=== PATIENT | male | born 1985 | race Caucasian/White ===

== ENCOUNTER 2017-02-23 22:12 | Emergency (ER) | payer BC ==
--- NOTE | 2017-02-23 23:01 | EDM.PDOC ---
ED HPI GENERAL MEDICAL PROBLEM - General Chief Complaint: Upper Extremity Injury/Pain Stated Complaint: CUT ON FINGER Time Seen by Provider: 02/23/17 23:01 - History of Present Illness INITIAL COMMENTS - FREE TEXT/NARRATIVE: 31-year-old male presents emergency room with accidental cut to his left index finger. Patient was reaching into a pocket get and he had a knife that was partially opened and caught it with the end of his finger. This involves left index finger. Patient's last tetanus shot was approximately 3 years ago. Left Hand Pain Score (Numeric/FACES): 4 - Related Data Allergies Allergy/AdvReac Type Severity Reaction Status Date / Time No Known Allergies Allergy Verified 02/23/17 22:26 Home Meds: Home Meds . [No Known Home Meds] 02/23/17 [History] Past Medical History - Past Health History Medical/Surgical History: Denies Medical/Surgical History Social & Family History - Tobacco Use Smoking Status *Q: Never Smoker - Recreational Drug Use Recreational Drug Use: No Review of Systems - Review of Systems Review Of Systems: See Below Respiratory: Reports: No Symptoms Cardiovascular: Reports: No Symptoms GI/Abdominal: Reports: No Symptoms ED EXAM, GENERAL - Physical Exam Exam: See Below Exam Limited By: No Limitations General Appearance: Alert, No Apparent Distress Respiratory/Chest: No Respiratory Distress, Lungs Clear, Normal Breath Sounds Cardiovascular: Regular Rate, Rhythm, No Edema, No Murmur Extremities: Other (Family history of his left index finger reveals a 1 cm laceration on the palmar distal portion of the finger radial aspect transverse just under 1 cm. This appears fairly clean full flexion and extension of the DIPJ and PIPJ and the metacarpal phalangeal joint is noted neurovascular status is normal distal to the laceration) ED TRAUMA EXTREMITY PROCEDURES - Laceration/Wound Repair Left Finger Lac/Wound Length In cm: 1 Appearance: Subcutaneous, Clean Distal NVT: Neuro & Vascular Intact Anesthetic Type: Digital Local Anesthesia - Lidocaine (Xylocaine): 1% Plain Local Anesthetic Volume: 2cc Tetanus Status Addressed: Yes (He is up-to-date) Complications: No Course - Vital Signs Last Recorded V/S: Last Vital Signs Temp 36.6 C 02/23/17 22:27 Pulse 60 02/23/17 22:27 Resp 16 02/23/17 22:27 BP 125/75 11/29/17 22:27 Pulse Ox 99 02/23/17 22:27 - Orders/Labs/Meds Meds: Medications Discontinued Medications Generic Name Dose Route Start Last Admin Trade Name Chrissy PRN Reason Stop Dose Admin Lidocaine HCl 10 ml 02/23/17 23:08 02/23/17 23:14 Xylocaine 1% INJECT 02/23/17 23:09 10 ml ONETIME ONE Administration Departure - Departure Time of Disposition: 23:54 Disposition: Home, Self-Care 01 Clinical Impression: Finger laceration - Discharge Information Instructions: Laceration Care, Adult, [id number] Referrals: PCP,None [Primary Care Provider] - Forms: ED Department Discharge Additional Instructions: Return to emergency room if any questions problems or concerns of infection. Follow-up in the Hospital clinic in 10-12 days for suture removal [phone]. Keep area clean and dry for the next 24 hours. After 24 hours he can let water gently run over the stitches for a few seconds then gently dab dry.
[2017-02-23] MEDS ORDERED: Lidocaine 1% 10 ML MDV INJECT ONE (23:08)
== END 2017-02-23 23:58 | disposition home or self-care (01) ==
LOC: JD.ED 22:12
DX: S61.211A Laceration without foreign body of left index finger without damage to nail, initial encounter (principal); W26.0XXA Contact with knife, initial encounter
CPT/HCPCS: 12001; 99282; 99283-25